=== PATIENT | female | born 1990 | race Two or more races ===

== ENCOUNTER 2023-01-15 04:18 | Emergency (ER) | payer MEDICAID ==
[~2023-01-15] VITALS: Ht 154.9 cm; Wt 87.0 kg
[2023-01-15 05:32] LABS: Basophils # (auto) 0.1 10 ^3/uL (0-0.2); Eosinophils # (auto) 0.8 10 ^3/uL (0-0.8); Hemoglobin 12.8 g/dL (12.2-16.2); Neutrophils # (auto) 5.7 10 ^3/uL (1.6-8.6); White Blood Cell 10.5 10^3/uL (4.4-10.8)
[2023-01-15 05:36] LABS: Basophils % (auto) 0.9 % (0.0-2.0); Eosinophils % (auto) 7.1 % (0.0-7.0); Hematocrit 38.5 % (36.0-46.0); Lymphocytes # (auto) 3.5 10 ^3/uL (0.4-5.4); Lymphocytes % (auto) 33.3 % (10.0-50.0); Mean Corpuscular Hemoglobin 26.4 pg (28.0-32.0); Mean Corpuscular Hgb Conc. 33.2 g/dL (32.0-36.0); Mean Corpuscular Volume 79.5 fL (80.0-100.0); Monocytes # (auto) 0.5 10 ^3/uL (0-1.3); Monocytes % (auto) 4.9 % (0.0-12.0); Neutrophils % (auto) 53.8 % (37.0-80.0); Nucleated Red Blood Cells % 0.1 %; Red Blood Cells 4.85 10^6/uL (4.0-5.20)
[2023-01-15 05:50] LABS: Alanine Aminotransferase 33 U/L (7-40); Albumin 4.6 g/dL (3.2-4.8); Alkaline Phosphatase 58 U/L (46-116); Anion Gap 8 (5-15); Aspartate Aminotransferase 22 U/L (13-40); BUN/Creatinine Ratio 11.1 (10.0-20.0); Bilirubin, Total 0.3 mg/dL (0.2-1.0); Blood Urea Nitrogen 9 mg/dL (9-23); Calcium 9.2 mg/dL (8.5-10.1); Carbon Dioxide 25 mmol/L (20-30); Chloride 108 mmol/L (98-107); Glucose 90 mg/dL (74-106); Potassium 3.6 mmol/L (3.5-5.1); Sodium 141 mmol/L (136-145); Total Protein 7.4 g/dL (5.7-8.2)
[2023-01-15 06:35] LABS: Magnesium 1.9 mg/dL (1.6-2.6)
[2023-01-15] MEDS ORDERED: ALBUAER3 IN (07:48)
[2023-01-15] MEDS ORDERED: METH4PAK PO (07:48)
[2023-01-15 08:14] VITALS: BP 133/87; PULSE 80; RESP 14; TEMP 98.5; O2SAT 96
== END 2023-01-15 08:18 | disposition home or self-care (01) ==
LOC: ER 04:18
DX: J45.909 Unspecified asthma, uncomplicated (principal); R10.2 Pelvic and perineal pain; R07.89 Other chest pain; Z79.899 Other long term (current) drug therapy
CPT/HCPCS: 36415; 71045; 80053; 83735; 83880; 84484; 84702; 85025; 85379; 93005

== ENCOUNTER 2023-04-27 08:43 | Emergency (ER) | payer MEDICAID ==
[~2023-04-27] VITALS: Ht 157.5 cm; Wt 92.7 kg
[~2023-04-27 08:43] MED LIST: ALBUAER3 IN; METH4PAK PO
[2023-04-27 09:10] VITALS: BP 137/93; PULSE 82; RESP 16; TEMP 97.7; O2SAT 95
[2023-04-27] MEDS ORDERED: KETOROLAC TROMETH 60MG/2ML VIAL IM ONE (09:15)
[2023-04-27] MEDS ORDERED: IBUP-1456 PO (09:18)
[2023-04-27] MEDS ORDERED: METH-1182 PO (09:18)
== END 2023-04-27 09:24 | disposition home or self-care (01) ==
LOC: ER 08:43
DX: S39.012A Strain of muscle, fascia and tendon of lower back, initial encounter (principal); Z79.899 Other long term (current) drug therapy; X50.1XXA Overexertion from prolonged static or awkward postures, initial encounter; Y93.89 Activity, other specified; Y92.89 Other specified places as the place of occurrence of the external cause; Y99.8 Other external cause status
CPT/HCPCS: 96372; 99283; J1885